=== PATIENT | female | born 1995 | race Caucasian/White ===

== ENCOUNTER 2024-11-26 13:17 | Outpatient (CLI) | payer BC, SELFPAY ==
--- NOTE | ~2024-11-26 | US_ITS ---
EXAMINATION: US pelvic complete w TV INDICATION: Menorrhagia with irregular menstrual cycles Comparison:No prior studies for comparison. TECHNIQUE: Multiple transabdominal and endovaginal sonographic images of the pelvis performed. FINDINGS: The uterus measures 8.8 x 4.6 x 5.8 cm. The endometrial complex measures 6 mm. The right ovary measures 2.1 x 1.7 x 2.9 cm and the left ovary measures 5.7 x 4.8 x 6 cm. There is a simple cyst of the left ovary measuring 5.2 cm. There are small follicles in each ovary. Normal doppler signal in both ovaries. There is no free fluid in the pelvis. There are no abnormal masses seen on either side. IMPRESSION: 1. Simple cyst of the left ovary measuring 5.2 cm. Reviewed, dictated and finalized at location O.
== END 2024-11-26 13:18 | disposition home or self-care (01) ==
LOC: MICIMG 13:18
PROVIDERS: PCP Nurse Practitioner; Visit Provider Nurse Practitioner
DX: N92.1 Excessive and frequent menstruation with irregular cycle (principal); R10.2 Pelvic and perineal pain
CPT/HCPCS: 76830; 76856